=== PATIENT | female | born 1935 | race Caucasian/White ===

== ENCOUNTER 2021-11-12 23:40 | Emergency (ER) | payer MEDICARE, MEDICAID ==
[~2021-11-12] VITALS: Ht 157.5 cm; Wt 58.2 kg
[~2021-11-12 23:40] MED LIST: ACET-3068 PO; AMLO2.5T2 PO; ATOR20TA PO; CA C1TAB91 PO; CLA10T PO; FOLI-43 PO; GABA-330 PO; LISI-222 PO; MORP30TA PO; MULT-785 PO; OMEP-84 PO; PARO40TA81 PO; SYN0.025T PO
[2021-11-13 00:21] VITALS: BP 161/66
--- NOTE | 2021-11-13 00:46 | NUR ---
REPORT GIVEN TO ER MD AND PRIMARY RN.
[2021-11-13 01:28] LABS: BASOPHILS # (AUTO) 0.1 X10'3 (0-0.2); BASOPHILS % (AUTO) 0.6 % (0-1); EOSINOPHILS # (AUTO) 0.2 X10'3 (0-0.9); EOSINOPHILS % (AUTO) 2.1 % (0-6); HEMATOCRIT 40.3 % (35.0-45.0); HEMOGLOBIN 13.4 g/dl (12.0-16.0); LYMPHOCYTES # (AUTO) 2.5 X10'3 (1.1-4.8); LYMPHOCYTES % (AUTO) 24.2 % (21-51); MEAN CORPUSCULAR HEMOGLOBIN 31.7 PG (27.0-31.0); MEAN CORPUSCULAR HGB CONC 33.2 g/dL (33.0-36.5); MEAN CORPUSCULAR VOLUME 95.2 FL (78-98); MEAN PLATELET VOLUME 8.1 FL (7.4-10.4); MONOCYTES % (AUTO) 9.9 % (2-12); NEUTROPHILS # (AUTO) 6.6 X10'3 (1.8-7.7); NEUTROPHILS % (AUTO) 63.2 % (42-75); PLATELET COUNT 271 X10'3 (140-440); RED BLOOD COUNT 4.23 X10'6 (4.20-5.60); RED CELL DISTRIBUTION WIDTH 13.1 % (11.5-14.5); WHITE BLOOD COUNT 10.5 X10'3 (4.5-11.0)
[2021-11-13 01:40] LABS: ALANINE AMINOTRANSFERASE 7 U/L (12-78); ALBUMIN 3.4 G/DL (3.4-5.0); ALKALINE PHOSPHATASE 157 IU/L (46-116); ANION GAP 9 (8-16); ASPARTATE AMINO TRANSFERASE 11 U/L (10-37); BILIRUBIN,TOTAL 0.2 MG/DL (0.1-1.0); BLOOD UREA NITROGEN 20 MG/DL (7-18); BUN/CREATININE RATIO 22.2 (6.6-38.0); CHLORIDE 104 MMOL/L (99-107); GLUCOSE 102 MG/DL (70-104); POTASSIUM 3.7 MMOL/L (3.5-5.1); SODIUM 141 MMOL/L (135-145); TOTAL CARBON DIOXIDE 28.2 MMOL/L (24-32); TOTAL PROTEIN 6.8 G/DL (6.4-8.2); eGFR 59 ML/MIN
[2021-11-13 01:49] LABS: MAGNESIUM 1.7 MG/DL (1.5-2.4)
[2021-11-13] MEDS ORDERED: TETanus/Pertussis (Acell)/Diphther VAC/PF (Tdap-Adult) 0.5ml syringe IMVAC ONE ×2 (02:30→02:50)
[2021-11-13] MEDS ORDERED: bacitracin 15gm ointment TP ONE (02:30)
[2021-11-13 03:00] LABS: CLARITY,URINE SLIGHTLY CLOUDY (Clear); COLOR,URINE YELLOW (Yellow); GLUCOSE, URINE NEGATIVE (Neg); KETONES,URINE NEGATIVE (Neg); LEUKOCYTE ESTERASE ,URINE SMALL (Neg); NITRITES, URINE NEGATIVE (Neg); OCCULT BLOOD,URINE NEGATIVE (Neg); PH,URINE 5.5 (4.8-8.0); PROTEIN,URINE NEGATIVE (Neg); UROBILINOGEN,URINE 0.2 E.U/dL (0.2-1.0)
[2021-11-13 03:02] LABS: UA COLLECTION TYPE CLN CATCH MIDSTREAM
[2021-11-13 03:18] LABS: SQUAMOUS EPITHELIAL CELL,UR MODERATE /LPF (FEW)
[2021-11-13 03:19] LABS: BACTERIA,URINE 2+ /HPF (Neg)
[2021-11-13 03:20] LABS: RBC,URINE 0-2 /HPF (0-2); RENAL CELLS, URINE FEW /HPF
== END 2021-11-13 05:09 | disposition home or self-care (01) ==
LOC: ER 23:40
DX: S01.81XA Laceration without foreign body of other part of head, initial encounter (principal); F03.90 Unspecified dementia, unspecified severity, without behavioral disturbance, psychotic disturbance, mood disturbance, and anxiety; I10 Essential (primary) hypertension; G89.29 Other chronic pain; Z90.89 Acquired absence of other organs; Z98.890 Other specified postprocedural states; Z91.010 Allergy to peanuts; Z88.8 Allergy status to other drugs, medicaments and biological substances; Z79.899 Other long term (current) drug therapy; W19.XXXA Unspecified fall, initial encounter; Y93.89 Activity, other specified; Y92.89 Other specified places as the place of occurrence of the external cause; Y99.8 Other external cause status
CPT/HCPCS: 12014; 36415; 70450; 70486; 71045; 72125; 73140; 80053; 81001; 83735; 83880; 84484; 85025; 87088; 90471; 90715; 93005; 99285